=== PATIENT | male | born 1975 | race Caucasian/White ===

== ENCOUNTER 2022-09-21 18:13 | Emergency (ER) | payer SELFPAY ==
[~2022-09-21] VITALS: Ht 154.9 cm; Wt 63.5 kg
[2022-09-21 18:15] VITALS: BP 134/86
--- NOTE | 2022-09-21 18:33 | NUR ---
IV 18 G L AC STARTED BY EMS IN [facility].
--- NOTE | 2022-09-21 18:33 | NUR ---
47 Y/O M BIBA [facility] C/O CHEST PAIN 6/10 FOR SEVERAL DAYS. PER PT HE FEELS PRESSURE ON HIS CHEST. NKA PMH: GERD, SEVERE BRAIN INJURY
[2022-09-21] MEDS ORDERED: LIDOCAINE 5% 1 EA PATCH TP ONE (18:35)
[2022-09-21] MEDS ORDERED: KETOROLAC 15 MG/ML VIAL IVP ONE (18:35)
--- NOTE | 2022-09-21 19:11 | NUR ---
LAB AT BEDSIDE.
--- NOTE | 2022-09-21 19:18 | NUR ---
GAVE REPORT TO DELMAR KEYS.
[2022-09-21 19:29] LABS: BASOPHILS % (AUTO) 0.6 % (0.0-2.0); EOSINOPHILS # (AUTO) 0.2 K/uL (0-0.4); EOSINOPHILS % (AUTO) 4.2 % (0.0-4.0); HEMATOCRIT 40.7 % (36-52); HEMOGLOBIN 13.7 g/dL (12.0-18.0); LYMPHOCYTES # (AUTO) 1.7 K/uL (2.0-11.5); LYMPHOCYTES % (AUTO) 33.1 % (20.5-51.1); MEAN CORPUSCULAR HEMOGLOBIN 31 pg (27-31); MEAN CORPUSCULAR HGB CONC 34 g/dL (33-37); MEAN CORPUSCULAR VOLUME 92.8 fL (80-94); MONOCYTES # (AUTO) 0.4 K/uL (0.8-1.0); MONOCYTES % (AUTO) 8.6 % (1.7-9.3); NEUTROPHILS # (AUTO) 2.8 K/uL (1.8-7.7); NEUTROPHILS % (AUTO) 53.5 % (42.2-75.2); PLATELET COUNT (AUTO) 218 K/uL (140-450); RED BLOOD CELL COUNT(AUTO) 4.38 MIL/uL (4.20-6.10); WHITE BLOOD COUNT (AUTO) 5.2 K/uL (4.8-10.8)
[2022-09-21 19:36] VITALS: BP 115/65
--- NOTE | 2022-09-21 19:44 | NUR ---
PT STATES HE HAS PAIN 6/10 AT THE MOMENT BUT IS FEELING BETTER.
[2022-09-21 19:46] LABS: ALBUMIN 4.2 g/dL (3.4-5.0); ANION GAP 9.4 (8-16); ASPARTATE AMINOTRANSFERASE 52 U/L (15-37); CARBON DIOXIDE 31.2 mmol/L (21-32); CHLORIDE 98 mmol/L (98-107); CREATININE 1.2 mg/dL (0.6-1.3); GFR ARICAN-AMERICAN 84 mL/min (>90); GLUCOSE 97 mg/dL (74-106); POTASSIUM 3.6 mmol/L (3.5-5.1); SODIUM SERUM 135 mmol/L (136-145); TOTAL BILIRUBIN 0.1 mg/dL (0.0-1.0); UREA NITROGEN, BLOOD 26 mg/dL (7-18)
[2022-09-21] MEDS ORDERED: ACETAMINOPHEN EXTRA STRENGTH 500 MG TAB PO ONE (20:05)
--- NOTE | 2022-09-22 00:45 | NUR ---
CALLED [facility], [facility] SETTING UP TRANSPORT FOR PT. [facility] WILL CALL BACK WITH INFORMATION. CONTACT INFO [phone] SPOKE TO PEEWEE
--- NOTE | 2022-09-22 01:11 | NUR ---
Patient discharged with v/s stable. Written and verbal after care instructions given and explained. Patient verbalized understanding. Ambulatory with steady gait. All questions addressed prior to discharge. Advised to follow up with PMD. PT'S FACILITY [facility] PROVIDED TRANSPORT
== END 2022-09-22 01:11 | disposition home or self-care (01) ==
LOC: MED 18:13
DX: R07.89 Other chest pain (principal); K21.9 Gastro-esophageal reflux disease without esophagitis; Z79.899 Other long term (current) drug therapy
CPT/HCPCS: 36415; 71045; 80053; 84484; 85025; 93005; 96374; 99285; J1885